=== PATIENT | female | born 1975 | race Caucasian/White ===

== ENCOUNTER 2017-03-12 09:15 | Emergency (ER) | payer OTHER ==
[2017-03-12] MEDS: KETOROLAC 60 MG INJ IM (11:03)
== END 2017-03-12 11:18 | disposition home or self-care (01) ==
LOC: FTE 09:15
DX: M54.9 Dorsalgia, unspecified (principal); M54.30 Sciatica, unspecified side
CPT/HCPCS: 96372; 99284-25